=== PATIENT | female | born 1950 | race Caucasian/White ===

== ENCOUNTER 2018-01-09 10:16 | Emergency (ER) | payer MEDICARE, BC ==
[2018-01-09] MEDS ORDERED: Acetaminophen 325 MG Tab PO ONE (10:57)
[2018-01-09] MEDS ORDERED: Diazepam 5 MG Tab PO ONE (10:58)
[2018-01-09] MEDS ORDERED: Ibuprofen 400 MG Tab PO ONE (10:58)
[2018-01-09] MEDS ORDERED: oxyCODONE 5 MG Tab PO ONE (10:59)
--- NOTE | 2018-01-09 11:28 | EDM.PDOC ---
ED HPI GENERAL MEDICAL PROBLEM - General Chief Complaint: Back Pain or Injury Stated Complaint: RIGHT LEG/HIP PAIN Time Seen by Provider: 01/09/18 10:33 Source of Information: Reports: Patient History Limitations: Reports: No Limitations - History of Present Illness INITIAL COMMENTS - FREE TEXT/NARRATIVE: 67-year-old female history of hyperlipidemia presenting with chief complaint lower back pain. Patient states her back pain started 2 days ago felt similar to prior urinary tract infections that she gets. She called her PCP at home who called in ciprofloxacin for her, she initially had improvement of her symptoms for 1 day. Of note patient doesn't usually get urinary symptoms with her UTIs. However this morning when she awoke she describes 10 on a 10 shooting tingling pain centered on the right lateral lower back reading down the back of her right leg. She has no weakness of the lower shortly, no bowel or bladder incontinence or retention no saddle anesthesia. Patient tried 40 mg of ibuprofen prior to arrival with no improvement of her pain. She has no history of sciatica. Of note the patient has been traveling for the past 2 [address] a road trip across the country. Patient has no history of DVT or PE no history malignancy and has no shortness of breath or chest pain today. Also denies any swelling of the lower extremity. No trauma. Associated Symptoms: Reports: No Other Symptoms Treatments TE[employer]ETING [employer]ER: Reports: NSAIDS Lower Back Pain Score (Numeric/FACES): 10 - Related Data Allergies Allergy/AdvReac Type Severity Reaction Status Date / Time No Known Allergies Allergy Verified 01/09/18 11:17 Home Meds: Home Meds Acetaminophen [Tylenol Extra Strength] 1,000 mg PO Q8H #30 tab 01/09/18 [Rx] Cyclobenzaprine [Flexeril] 10 mg PO TID #30 tab 01/09/18 [Rx] Ibuprofen [Motrin] 800 mg PO BIDM #30 tab 01/09/18 [Rx] Past Medical History HEENT History: Reports: Cataract Cardiovascular History: Reports: High Cholesterol Genitourinary History: Reports: Other (See Below) Other Genitourinary History: recurrent kidney infections Musculoskeletal History: Reports: Other (See Below) Other Musculoskeletal History: tight hip flexors - Past Surgical History Musculoskeletal Surgical History: Reports: Carpal Tunnel Social & Family History - Family History Family Medical History: Noncontributory Cardiac: Reports: Blood Clots/VTE/DVT Other Cardiac Family History: dad has a history of blood clots - Tobacco Use Smoking Status *Q: Never Smoker Second Hand Smoke Exposure: No - Caffeine Use Caffeine Use: Reports: Coffee - Recreational Drug Use Recreational Drug Use: No ED ROS GENERAL - Review of Systems Review Of Systems: See Below Constitutional: Reports: No Symptoms Respiratory: Reports: No Symptoms Cardiovascular: Reports: No Symptoms GI/Abdominal: Reports: No Symptoms : Reports: No Symptoms Musculoskeletal: Reports: Back Pain, Leg Pain Skin: Reports: No Symptoms Neurological: Reports: No Symptoms Psychiatric: Reports: No Symptoms ED EXAM,LOWER BACK PAIN/INJURY - Physical Exam Exam: See Below Exam Limited By: No Limitations General Appearance: Alert, Moderate Distress Head: Atraumatic, Normocephalic Respiratory/Chest: No Respiratory Distress Cardiovascular: Normal Peripheral Pulses GI/Abdominal: Soft, Non-Tender Back Exam: Other (No midline tenderness to palpation of the cervical thoracic or lumbar spine, mild tenderness to palpation of the paraspinal muscles in the lumbar area negative straight leg raise on the left positive straight leg raise on the right) Neurological: Alert, Normal Dorsiflexion, CN II-XII Intact, Normal Plantar Flexion, Normal Reflexes, No Motor/Sensory Deficits, Other (No saddle anesthesia. Strength is 5 out of 5 in bilateral lower extremities with plantar dorsiflexion E flexion-extension) Skin Exam: Warm, Dry, Intact Course - Vital Signs Last Recorded V/S: Last Vital Signs Temp 36.2 C 01/09/18 10:26 Pulse 64 01/09/18 10:26 Resp 20 01/09/18 10:26 BP 158/65 H 01/09/18 10:26 Pulse Ox 98 01/09/18 10:26 - Orders/Labs/Meds Orders: Active Orders 24 hr Category Date Time Status UA W/MICROSCOPIC [URIN] Stat Lab 01/09/18 12:26 Ordered Labs: Laboratory Tests 01/09/18 Range/Units 12:26 Urine Color Yellow (Yellow) Urine Appearance Clear (Clear) Urine pH 7.5 (5.0-8.0) Ur Specific [place] 1.020 (1.005-1.030) Urine Protein Negative (Negative) Urine Glucose (UA) Negative (Negative) Urine Ketones Negative (Negative) Urine Occult Blood Trace-intact H (Negative) Urine Nitrite Negative (Negative) Urine Bilirubin Negative (Negative) Urine Urobilinogen 0.2 (0.2-1.0) Ur Leukocyte Esterase Negative (Negative) Urine RBC 0-5 (0-5) /hpf Urine WBC 0-5 (0-5) /hpf Ur Epithelial Cells 0-5 (0-5) /hpf Urine Bacteria Few (FEW) /hpf Urine Mucus Few (FEW) /hpf Meds: Medications Discontinued Medications Generic Name Dose Route Start Last Admin Trade Name Mirq PRN Reason Stop Dose Admin Acetaminophen 975 mg 01/09/18 10:57 01/09/18 11:22 Tylenol PO 01/09/18 10:58 975 mg NOW ONE Administration Diazepam 5 mg 01/09/18 10:58 01/09/18 11:23 Valium. PO 01/09/18 10:59 5 mg ONETIME ONE Administration Hydromorphone HCl 1 mg 01/09/18 14:03 01/09/18 14:19 Dilaudid IVPUSH 01/09/18 14:04 1 mg ONETIME ONE Administration Ibuprofen 400 mg 01/09/18 10:58 01/09/18 11:23 Motrin PO 01/09/18 10:59 400 mg ONETIME ONE Administration Ondansetron HCl 4 mg 01/09/18 14:03 01/09/18 14:18 Zofran IVPUSH 01/09/18 14:04 4 mg ONETIME ONE Administration Oxycodone HCl 5 mg 01/09/18 10:59 01/09/18 11:27 Oxycodone PO 01/09/18 11:00 5 mg ONETIME ONE Administration - Re-Assessments/Exams Free Text/Narrative Re-Assessment/Exam: 01/09/18 11:27 Differential diagnosis: Sciatica, lower back strain, muscular strain, unlikely radiculopathy 67-year-old female presenting with chief complaint of lower back pain reading down her leg. On initial exam patient will allow signs however. Moderate amount distress with tears. Physical exam was notable for normal strength and sensation in the lower Shoney's and positive straight leg raise test on the right. At this time patient most likely has sciatica or muscle strain. Plan is to treat symptomatically with Tylenol, ibuprofen, oxycodone and Valium. Also obtain a urinalysis to explore the possibility of UTI or nephrolithiasis. Urinalysis was not suggestive of stone or infection. Upon reevaluation the patient states she has 11 out of 10 pain. Continues to have no concerning signs or symptoms. The patient was offered IV Dilaudid which she accepted. On my third reevaluation the patient reported improvement of her pain and was ready to be discharged home. Plan is to discharge her home with prescriptions for ibuprofen, Flexeril, Tylenol. The patient will attempt to take more frequent breaks on her cross-country road trip and stretch more often. At this time I feel the history and physical exam are most consistent with sciatica patient was given strict return precautions for any new or worsening neurologic symptoms which could be concerning for cauda equina syndrome. 01/09/18 21:56 Departure - Departure Time of Disposition: 14:41 Disposition: Home, Self-Care 01 Condition: Fair Clinical Impression: Sciatica Qualifiers: Laterality: right Qualified Code(s): M54.31 - Sciatica, right side - Discharge Information *PRESCRIPTION DRUG MONITORING PROGRAM REVIEWED*: No *COPY OF PRESCRIPTION DRUG MONITORING REPORT IN PATIENT [place]: No Prescriptions: Acetaminophen [Tylenol Extra Strength] 1,000 mg PO Q8H #30 tab Cyclobenzaprine [Flexeril] 10 mg PO TID #30 tab Ibuprofen [Motrin] 800 mg PO BIDM #30 tab Instructions: Sciatica Referrals: PCP,Not In Area [Primary Care Provider] - Forms: ED Department Discharge Additional Instructions: You have been evaluated for back and leg pain in the ED. Your history and physical exam are suggestive of sciatica as a cause. Treatment includes NSAIDS, muscle relaxers and stretching. If at any time you have leg weakness/numbness, urinary incontinence/retention please present to the nearest ED. At this time further diagnostic testing is not needed. - My Orders Last 24 Hours: My Active Orders 01/09/18 12:26 UA W/MICROSCOPIC [URIN] Stat - Assessment/Plan Last 24 Hours: My Active Orders 01/09/18 12:26 UA W/MICROSCOPIC [URIN] Stat
[2018-01-09] MEDS ORDERED: Ondansetron 4 MG/2 ML SDV IVPUSH ONE (14:03)
[2018-01-09] MEDS ORDERED: HYDROmorphone 1 MG/ML Syringe IVPUSH ONE (14:03)
== END 2018-01-09 15:24 | disposition home or self-care (01) ==
LOC: JD.ED 10:16
DX: M54.41 Lumbago with sciatica, right side (principal)
CPT/HCPCS: 81001; 96374; 96375; 99284; A9270; J1170; J2405